=== PATIENT | male | born 1985 | race African-American/Black ===

== ENCOUNTER 2016-08-11 20:29 | Emergency (ER) | payer SELFPAY ==
[2016-08-11] MEDS ORDERED: ONDANSETRON 4 MG TAB.RAPDIS PO ONE (22:32)
[2016-08-11] MEDS ORDERED: ACETAMINOPHEN 325 MG TABLET PO ONE (22:32)
[2016-08-11 22:35] VITALS: BP 98/80
--- NOTE | 2016-08-11 22:35 | ER Document Report ---
ED Medical Screen (RME) - General Chief Complaint: Nausea/Vomiting/Diarrhea Stated Complaint: VOMITING DIARRHEA CHEST PAIN Notes: 30 year old male, chief complaint of nausea, vomiting, diarrhea, and mid abdominal pain starting today. Had chills. PMH HIV, taking his meds, CD4 counts reported to be normal. Denies abdominal surgery. TRAVEL OUTSIDE OF THE [place] IN LAST 30 DAYS: No - Related Data Allergies/Adverse Reactions: sulfamethoxazole [From Septra] Allergy (Verified 07/26/15 23:59) trimethoprim [From Septra] Allergy (Verified 07/26/15 23:59) Physical Exam - General General appearance: Appears well In distress: None - Abdominal Tenderness: Tender - generalized tenderness with no guarding
[2016-08-11 23:46] LABS: ABSOLUTE EOSINOPHILS # (AUTO) 0.2 10^3/uL (0.0-0.6); ABSOLUTE LYMPHOCYTES (AUTO) 1.3 10^3/uL (0.5-4.7); ABSOLUTE MONOCYTES (AUTO) 0.7 10^3/uL (0.1-1.4); BASOPHILS % (AUTO) 0.4 % (0-2); EOSINOPHILS % (AUTO) 3.3 % (0-6); HEMATOCRIT 49.1 % (37.9-51.0); HEMOGLOBIN 16.5 g/dL (13.5-17.0); HGB HCT DIFFERENCE 0.4; LYMPHOCYTES % (AUTO) 17.9 % (13-45); MEAN CORPUSCULAR HEMOGLOBIN 29.3 pg (27.0-33.4); MEAN CORPUSCULAR HGB CONC 33.6 g/dL (32.0-36.0); MEAN CORPUSCULAR VOLUME 87 fl (80-97); MONOCYTES % (AUTO) 9.3 % (3-13); RED BLOOD COUNT 5.63 10^6/uL (4.35-5.55); RED CELL DISTRIBUTION WIDTH 13.8 % (11.5-14.0); SEGMENTED NEUTROPHILS % (AUTO) 69.1 % (42-78); WHITE BLOOD COUNT 7.3 10^3/uL (4.0-10.5)
[2016-08-12 00:06] LABS: ALANINE AMINOTRANSFERASE 36 U/L (21-72); ALBUMIN 4.6 g/dL (3.5-5.0); ALKALINE PHOSPHATASE 62 U/L (38-126); ANION GAP 13 (5-19); ASPARTATE AMINO TRANSFERASE 48 U/L (17-59); BILIRUBIN,DIRECT 0.1 mg/dL (0.0-0.4); BILIRUBIN,TOTAL 0.7 mg/dL (0.2-1.3); BLOOD UREA NITROGEN 19 mg/dL (7-20); CALCIUM 9.1 mg/dL (8.4-10.2); CARBON DIOXIDE 27 mmol/L (22-30); CHLORIDE 102 mmol/L (98-107); CREATININE RESULT 1.23 mg/dL (0.52-1.25); GLUCOSE 92 mg/dL (75-110); POTASSIUM 4.2 mmol/L (3.6-5.0); SODIUM 142.1 mmol/L (137-145)
== END 2016-08-12 03:55 | disposition left against medical advice (07) ==
LOC: ER 20:29
DX: Z53.9 Procedure and treatment not carried out, unspecified reason (principal); R11.2 Nausea with vomiting, unspecified; R19.7 Diarrhea, unspecified; R07.9 Chest pain, unspecified
CPT/HCPCS: 99281; 36415; 85025; 80053; S0119

== ENCOUNTER 2018-10-03 19:51 | Emergency (ER) | payer SELFPAY ==
[2018-10-03 19:56] VITALS: BP 142/74
--- NOTE | 2018-10-03 20:47 | ER Document Report ---
ED Respiratory Problem - General Chief Complaint: Cough Stated Complaint: COUGH Time Seen by Provider: 10/03/18 20:30 Information source: Patient, Relative Notes: Patient is a 32-year-old male comes emergency room complaining of upper respiratory cold. States it started on Thursday and is been get into coughing fits that now his chest hurts from coughing so hard. He has been chilling but he does not know if he has had a temp in the past. He vapes cigarettes that he has a history of HIV positive and he is on antivirals. Patient does work in the public setting and sunglasses it. TRAVEL OUTSIDE OF THE [place] IN LAST 30 DAYS: No - HPI Patient complains to provider of: Cough Onset: Other - 2 days Duration: Continuous, Worse/persistent Initiating Event: Allergy Quality of pain: Achy, Throbbing Severity: Moderate Pain Level: 3 Context: Smoker, Other - HIV Short of Breath: Mild Chest pain/discomfort: Constant, Worse with deep breaths Cough: Productive Sputum amount: Moderate Sputum color: Green Associated symptoms: Earache, Runny nose, Sinus pain/pressure, Sore Throat Similar symptoms previously: No Recently seen / treated by doctor: No - Related Data Allergies/Adverse Reactions: sulfamethoxazole [From ] Allergy (Verified 07/26/15 23:59) trimethoprim [From ] Allergy (Verified 07/26/15 23:59) Past Medical History - Social History Smoking Status: Current Every Day Smoker Chew tobacco use (# tins/day): No Frequency of alcohol use: Social Drug Abuse: None Family History: None Patient has suicidal ideation: No Patient has homicidal ideation: No Renal/ Medical History: Denies: Hx Peritoneal Dialysis Review of Systems - Review of Systems Constitutional: Chills, Fever EENT: Ear pain, Nose congestion, Sinus pressure, Sinus discharge, Throat pain, Difficulty swallowing Cardiovascular: No symptoms reported Respiratory: Cough, Hurts to breathe, Sputum Gastrointestinal: No symptoms reported Genitourinary: No symptoms reported Male Genitourinary: No symptoms reported Musculoskeletal: No symptoms reported Skin: No symptoms reported Hematologic/Lymphatic: No symptoms reported Neurological/Psychological: No symptoms reported -: Yes All other systems reviewed and negative Physical Exam - Vital signs Vitals: Temp Pulse Resp BP Pulse Ox 98.3 F 98 20 142/74 H 96 10/03/18 19:55 10/03/18 19:55 10/03/18 19:55 10/03/18 19:55 10/03/18 19:55 Interpretation: Hypertensive - Notes Notes: PHYSICAL EXAMINATION: GENERAL: Patient is a well-nourished well-developed 32-year-old male who is in no apparent distress on physical exam tonight however he does appear ill. HEAD: Atraumatic, normocephalic. EYES: Pupils equal round and reactive to light, extraocular movements intact, sclera anicteric, conjunctiva are normal. ENT: Examination head and upper airway showed nasal mucosa to be very erythematous and edematous with a large amount of clear rhinorrhea draining continuously. Bilateral examination ears show TMs bulging with fluid levels noted throughout. Moderate amount of erythema surrounding the TMs also noted. External canals have mild erythema no swelling. Posterior pharynx shows large amount of drainage yellowish-green in color. Very thick in nature. Uvula is midline with erythema. Tonsils are slightly enlarged but no exudate known moderate amount of erythema though. NECK: Normal range of motion, supple without lymphadenopathy LUNGS: Breath sounds clear to auscultation bilaterally and equal. No wheezes rales or rhonchi. HEART: Regular rate and rhythm without murmurs NEUROLOGICAL: Normal speech, normal gait. Normal sensory, motor exams PSYCH: Normal mood, normal affect. SKIN: Warm, Dry, normal turgor, no rashes or lesions noted. Course - Re-evaluation Re-evalutation: 10/03/18 20:47 Patient's stay in ER was uneventful. He does have a history of HIV and is on antivirals. He appears somewhat ill and uncomfortable. We will place him on an antibiotic secondary to his immune status and will place him on some Sudafed, nasal steroid and will have him use some Afrin nasal spray before bed. Patient is in agreement with this treatment plan. - Vital Signs Vital signs: Temp Pulse Resp BP Pulse Ox 98.3 F 98 20 142/74 H 96 10/03/18 19:55 10/03/18 19:55 10/03/18 19:55 10/03/18 19:55 10/03/18 19:55 Discharge - Discharge Clinical Impression: Upper respiratory infection Qualifiers: URI type: unspecified URI Qualified Code(s): J06.9 - Acute upper respiratory infection, unspecified Sinusitis Qualifiers: Sinusitis location: frontal Chronicity: acute Recurrence: non-recurrent Qualified Code(s): J01.10 - Acute frontal sinusitis, unspecified Condition: Stable Disposition: HOME, SELF-CARE Instructions: Acetaminophen, Upper Respiratory Illness ([facility]), Sinusitis ([facility]) Additional Instructions: Home and rest. Medication as prescribed. Contact your doctor tomorrow to inform him of your condition. As we discussed I am placing you on an antibiotic because of your status. Also the Afrin nasal spray as we discussed only at night before bed for 3 nights. This is the afternoon that comes in a purple package with a moisturizer in it. This is 2 sprays on each side of the nose before bed only. Should you have increasing shortness of breath continue with severe cough or have any concerns return to ER for recheck. Prescriptions: Benzonatate [Tessalon Perles 100 mg Capsule] 100 mg PO Q8HP PRN #30 capsule PRN Reason: Amox Tr/Potassium Clavulanate [Augmentin 875-125 mg Tablet] 1 tab PO BID 10 Days #20 tablet Fluticasone Propionate [Flonase Nasal Monroe 50 Mcg/[place] 16 gm] 1 spray NASL Q12 #1 inhaler Pseudoephedrine HCl [Sudafed 12 Hour] 120 mg PO BID #20 tablet.er Forms: Return to Work Referrals: [facility] [NO LOCAL MD] - Follow up as needed
== END 2018-10-03 21:01 | disposition home or self-care (01) ==
LOC: ER 19:51
DX: J06.9 Acute upper respiratory infection, unspecified (principal); J01.10 Acute frontal sinusitis, unspecified; R05 Cough; H92.09 Otalgia, unspecified ear; R09.89 Other specified symptoms and signs involving the circulatory and respiratory systems; J34.89 Other specified disorders of nose and nasal sinuses; R09.81 Nasal congestion; R50.9 Fever, unspecified; R13.10 Dysphagia, unspecified; R07.1 Chest pain on breathing; J02.9 Acute pharyngitis, unspecified; F17.290 Nicotine dependence, other tobacco product, uncomplicated; Z21 Asymptomatic human immunodeficiency virus [HIV] infection status; Z79.899 Other long term (current) drug therapy; Z88.1 Allergy status to other antibiotic agents
CPT/HCPCS: 99283

== ENCOUNTER 2019-05-05 23:08 | Emergency (ER) | payer BC ==
--- NOTE | 2019-05-06 01:11 | RADIOLOGY REPORT (SQ) ---
EXAM DESCRIPTION: X-RAY CHEST- TWO VIEWS CLINICAL HISTORY: Chest pain COMPARISON: None available TECHNIQUE: 2.0 views of the chest FINDINGS: There are no discrete air space infiltrates, pneumothoraces or pleural effusions. The pulmonary vascularity is normal. The cardiomediastinal silhouette is normal in size. No suspicious lytic or blastic osseous lesions are identified. IMPRESSION: There are no acute lung parenchymal findings.
--- NOTE | 2019-05-06 01:18 | ER Document Report ---
ED General - General Chief Complaint: Shortness Of Breath Stated Complaint: CHEST PAIN WITH COUGH Time Seen by Provider: 05/06/19 00:58 Notes: 33-year-old male presents emergency department complaining of 2 weeks of a cough productive of clear and yellow mucus associated with chills and sweating. Patient states he only has pain when he coughs. Has some shortness of breath with coughing. Denies any wheezing. He is concerned he may have pneumonia because his friend's mother just from pneumonia. Admits history of HIV, currently he is compliant with his medications, viral load is undetectable and his CD4 count is normal. He is treated at [facility]. TRAVEL OUTSIDE OF THE [place] IN LAST 30 DAYS: No - Related Data Allergies/Adverse Reactions: sulfamethoxazole [From Janra] Allergy (Verified 07/26/15 23:59) trimethoprim [From Janra] Allergy (Verified 07/26/15 23:59) Home Medications: genvoya Past Medical History - General Information source: Patient - Social History Smoking Status: Current Every Day Smoker Frequency of alcohol use: Occasional Drug Abuse: None Family History: None Patient has suicidal ideation: No Patient has homicidal ideation: No Renal/ Medical History: Denies: Hx Peritoneal Dialysis Review of Systems - Review of Systems Constitutional: See HPI, Chills, Diaphoresis. denies: Fever EENT: Nose congestion, Nose discharge Cardiovascular: See HPI, Chest pain Respiratory: See HPI -: Yes All other systems reviewed and negative Physical Exam - Vital signs Vitals: Temp Pulse Resp BP Pulse Ox 97.9 F 94 16 140/87 H 98 05/05/19 23:39 05/05/19 23:39 05/05/19 23:39 05/05/19 23:39 05/05/19 23:39 Interpretation: Hypertensive - Notes Notes: GENERAL: Alert, interacts well. No acute distress. HEAD: Normocephalic, atraumatic EYES: Pupils equal, round and reactive to light, extraocular movements intact. ENT: Oral mucosa moist, tongue midline. Clear rhinorrhea, no turbinate edema, tympanic membranes intact, no bulging or injection, slight postnasal drip. NECK: Full range of motion, supple, trachea midline. LUNGS: Clear to auscultation bilaterally, no wheezes, rales or rhonchi, no respiratory distress. HEART: Regular rate and rhythm, no murmurs, gallops, rubs. ABDOMEN: Soft, nontender, nondistended, bowel sounds present in all 4 quadrants. EXTREMITIES: Moves all 4 extremities spontaneously. No cyanosis. NEUROLOGICAL: Alert and oriented x3, normal speech. PSYCH: Normal mood, normal affect. SKIN: Warm, Dry, normal turgor, no rashes or lesions noted. Course - Re-evaluation Re-evalutation: 05/06/19 01:48 Chest x-ray negative, consistent with viral upper respiratory tract infection with cough, no indication for steroids or inhaler as there is no wheezing. Discharged home with supportive care. - Vital Signs Vital signs: Temp Pulse Resp BP Pulse Ox 97.9 F 94 16 140/87 H 98 05/05/19 23:39 05/05/19 23:39 05/05/19 23:39 05/05/19 23:39 05/05/19 23:39 - EKG Interpretation by Me Additional EKG results interpreted by me: 05/06/19 01:00 EKG shows sinus rhythm at a rate of 81, normal axis, normal intervals, T wave inversions in lead III, LVH, with early repolarization with slight ST segment elevation, per my interpretation. Discharge - Discharge Clinical Impression: Viral upper respiratory tract infection with cough Condition: Stable Disposition: HOME, SELF-CARE Additional Instructions: Please use nasal saline rinses such as a NetiPot or NeilMed Sinus Rinses. Please use nasal steroid such as Nasonex 1 squirt per nostril twice a day to decrease inflammation and swelling. Please also use [id number] decongestants according to their directions on the box such as Sudafed during the day and Benadryl at night. Please use ibuprofen (Motrin or Advil) 600-800 mg every 8 hours as needed for pain or fever. You may also use acetaminophen (Tylenol) 1000 mg every 4-6 hours as needed for pain or fever. Please be aware that many medications contain acetaminophen, do not exceed a total of 1000 mg of acetaminophen every 6 hours. You may use the Tessalon Perles 1 tablet every 8 hours as needed to decrease cough. Prescriptions: Benzonatate [Tessalon Perles 100 mg Capsule] 100 mg PO Q8HP PRN #40 capsule PRN Reason:
[2019-05-06] MEDS ORDERED: BENZONATATE 100 MG CAPSULE PO ONE (01:49)
[2019-05-06 02:09] VITALS: BP 119/86
--- NOTE | 2019-05-06 06:49 | EKG REPORT ---
SEVERITY:- NORMAL ECG - SINUS RHYTHM ST ELEV, PROBABLE NORMAL EARLY REPOL PATTERN : Confirmed by: Dorian Harvey MD 06-May-2019 06:48:15
== END 2019-05-06 02:10 | disposition home or self-care (01) ==
LOC: ER 23:08
DX: J06.9 Acute upper respiratory infection, unspecified (principal); B97.89 Other viral agents as the cause of diseases classified elsewhere; R68.83 Chills (without fever); R61 Generalized hyperhidrosis; R05 Cough; R06.02 Shortness of breath; R07.9 Chest pain, unspecified; R09.81 Nasal congestion; J34.89 Other specified disorders of nose and nasal sinuses; R09.82 Postnasal drip; I51.7 Cardiomegaly; F17.200 Nicotine dependence, unspecified, uncomplicated; Z21 Asymptomatic human immunodeficiency virus [HIV] infection status; Z79.899 Other long term (current) drug therapy; Z88.1 Allergy status to other antibiotic agents
CPT/HCPCS: 71046; 93005; 93010; 99283

== ENCOUNTER 2019-07-10 18:53 | Emergency (ER) | payer BC ==
--- NOTE | 2019-07-10 19:08 | ER Document Report ---
ED Medical Screen (RME) - General Chief Complaint: Cough Stated Complaint: COUGH,CONGESTION,SORE THROAT Time Seen by Provider: 07/10/19 19:05 Mode of Arrival: Ambulatory Information source: Patient Notes: 33-year-old male presented to ED for complaint of cough cold congestion hot and cold flashes does not know if he has any fever. He states he has had chest pain with cough. He is HIV positive and is worried about getting pneumonia with his HIV. He is alert oriented respirations regular nonlabored speaking in full sentences. States he smokes 1 cigarette every other day denies alcohol or drugs. States he had his CD4 counts on the and they were good. I have greeted and performed a rapid initial assessment of this patient. A comprehensive ED assessment and evaluation of the patient, analysis of test results and completion of medical decision making process will be conducted by an additional ED providers. TRAVEL OUTSIDE OF THE [place] IN LAST 30 DAYS: No - Related Data Allergies/Adverse Reactions: sulfamethoxazole [From ] Allergy (Verified 07/26/15 23:59) trimethoprim [From Janra] Allergy (Verified 07/26/15 23:59) Past Medical History Renal/ Medical History: Denies: Hx Peritoneal Dialysis Physical Exam - Vital signs Vitals: Temp Pulse Resp BP Pulse Ox 97.9 F 94 18 147/76 H 100 07/10/19 19:03 07/10/19 19:03 07/10/19 19:03 07/10/19 19:03 07/10/19 19:03 Course - Vital Signs Vital signs: Temp Pulse Resp BP Pulse Ox 97.9 F 94 18 147/76 H 100 07/10/19 19:03 07/10/19 19:03 07/10/19 19:03 07/10/19 19:03 07/10/19 19:03
[2019-07-10 19:45] LABS: ABSOLUTE BASOPHILS # (AUTO) 0.1 10^3/uL (0.0-0.2); ABSOLUTE EOSINOPHILS # (AUTO) 0.3 10^3/uL (0.0-0.6); ABSOLUTE MONOCYTES (AUTO) 0.7 10^3/uL (0.1-1.4); APPEARANCE,URINE CLEAR; BASOPHILS % (AUTO) 0.6 % (0-2); BILIRUBIN,URINE NEGATIVE (NEGATIVE); COLOR,URINE YELLOW; EOSINOPHILS % (AUTO) 3.7 % (0-6); GLUCOSE, URINE NEGATIVE (NEGATIVE); HEMATOCRIT 45.5 % (37.9-51.0); HEMOGLOBIN 15.5 g/dL (13.5-17.0); KETONES,URINE NEGATIVE (NEGATIVE); LYMPHOCYTES % (AUTO) 24.7 % (13-45); MEAN CORPUSCULAR HEMOGLOBIN 29.6 pg (27.0-33.4); MEAN CORPUSCULAR VOLUME 87 fl (80-97); MONOCYTES % (AUTO) 8.2 % (3-13); PLATELET COUNT 231 10^3/uL (150-450); PROTEIN,URINE NEGATIVE (NEGATIVE); RED BLOOD COUNT 5.24 10^6/uL (4.35-5.55); RED CELL DISTRIBUTION WIDTH 13.6 % (11.5-14.0); SEGMENTED NEUTROPHILS % (AUTO) 62.8 % (42-78); TOTAL CELLS COUNTED % (AUTO) 100 %; URINE SPECIFIC GRAVITY 1.015; UROBILINOGEN,URINE NEGATIVE mg/dL (<2.0)
--- NOTE | 2019-07-10 19:45 | RADIOLOGY REPORT (SQ) ---
EXAM DESCRIPTION: CHEST 2 VIEWS COMPLETED DATE/TIME: 07/10/2019 7:36 pm REASON FOR STUDY: Cough cold congestion, HIV positive COMPARISON: 2018. TECHNIQUE: Frontal and lateral radiographic views of the chest acquired. NUMBER OF VIEWS: Two view. LIMITATIONS: None. FINDINGS: LUNGS AND PLEURA: No opacities, masses or pneumothorax. No pleural effusion. MEDIASTINUM AND HILAR STRUCTURES: No masses or contour abnormalities. HEART AND VASCULAR STRUCTURES: Heart normal size. No evidence for failure. BONES: No acute findings. HARDWARE: None in the chest. OTHER: No other significant finding. IMPRESSION: NO SIGNIFICANT RADIOGRAPHIC FINDING IN THE CHEST. TECHNICAL DOCUMENTATION: JOB ID: [id number] 2010 [employer]- All Rights Reserved Reading location - IP/workstation name: [email or web address]
[2019-07-10 20:01] LABS: ALBUMIN 4.9 g/dL (3.5-5.0); ALKALINE PHOSPHATASE 77 U/L (38-126); ANION GAP 11 (5-19); ASPARTATE AMINO TRANSFERASE 39 U/L (17-59); BILIRUBIN,TOTAL 0.4 mg/dL (0.2-1.3); BLOOD UREA NITROGEN 10 mg/dL (7-20); CALCIUM 9.6 mg/dL (8.4-10.2); CARBON DIOXIDE 26 mmol/L (22-30); CHLORIDE 103 mmol/L (98-107); GLUCOSE 88 mg/dL (75-110); POTASSIUM 4.3 mmol/L (3.6-5.0); TOTAL PROTEIN 8.3 g/dL (6.3-8.2)
[2019-07-10 20:02] LABS: A TYPE INFLUENZA AG NEGATIVE (NEGATIVE); B INFLUENZA AG NEGATIVE (NEGATIVE)
--- NOTE | 2019-07-10 20:30 | ER Document Report ---
ED General - General Chief Complaint: Cold Symptoms Stated Complaint: COUGH,CONGESTION,SORE THROAT Time Seen by Provider: 07/10/19 19:05 Mode of Arrival: Ambulatory Notes: Patient is a 33-year-old -[place] male with past medical history of HIV who presents to the emergency department the chief complaint of cough, scratchy throat and runny nose with postnasal drainage for the past few days. He reports given his HIV status he was concerned with the cough, wanted x-ray to make sure he had no pneumonia. He denies any known fevers chills or night sweats. Denies any nausea vomiting or diarrhea. States his cell counts are good and viral load is undetectable, takes his antiviral medications as prescribed and sees his doctor regularly. Admits to sick contacts, denies recent travel TRAVEL OUTSIDE OF THE [place] IN LAST 30 DAYS: No - Related Data Allergies/Adverse Reactions: sulfamethoxazole [From ] Allergy (Verified 07/26/15 23:59) trimethoprim [From ] Allergy (Verified 07/26/15 23:59) Home Medications: genyoa, Past Medical History - General Information source: Patient - Social History Smoking Status: Current Some Day Smoker Chew tobacco use (# tins/day): No Frequency of alcohol use: None Drug Abuse: None Family History: None Patient has suicidal ideation: No Patient has homicidal ideation: No Renal/ Medical History: Denies: Hx Peritoneal Dialysis Review of Systems - Review of Systems EENT: Nose congestion, Nose discharge, Throat pain Respiratory: Cough -: Yes All other systems reviewed and negative Physical Exam - Vital signs Vitals: Temp Pulse Resp BP Pulse Ox 97.9 F 94 18 147/76 H 100 07/10/19 19:03 07/10/19 19:03 07/10/19 19:03 07/10/19 19:03 07/10/19 19:03 - General General appearance: Appears well, Alert In distress: None - HEENT Head: Normocephalic, Atraumatic Eyes: Normal Conjunctiva: Normal Extraocular movements intact: Yes Eyelashes: Normal Pupils: PERRL Ears: Normal External canal: Normal Tympanic membrane: Normal Sinus: Normal Nasal: Normal Mouth/Lips: Normal Mucous membranes: Normal Pharynx: Normal Neck: Normal - Respiratory Respiratory status: No respiratory distress Chest status: Nontender Breath sounds: Normal Chest palpation: Normal - Cardiovascular Rhythm: Regular Heart sounds: Normal auscultation - Neurological Neuro grossly intact: Yes Cognition: Normal Orientation: AAOx4 [place] Coma Scale Eye Opening: Spontaneous [place] Coma Scale Verbal: Oriented [place] Coma Scale Motor: Obeys Commands [place] Coma Scale Total: 15 Speech: Normal - Psychological Associated symptoms: Normal affect, Normal mood - Skin Skin Temperature: Warm Skin Moisture: Dry Skin Color: Normal Course - Re-evaluation Re-evalutation: 07/10/19 20:28 Work-up unremarkable. X-ray negative for acute process per radiologist. History and physical consistent with a viral URI. Will prescribe Tessalon for cough. Discussed supportive care measures including rest and hydration. Counseled him regarding the importance of outpatient follow-up and advised to return here or any ER immediately with any new, persistent or worsening symptoms. He verbalized understood and agreed. - Vital Signs Vital signs: Temp Pulse Resp BP Pulse Ox 97.9 F 94 18 147/76 H 100 07/10/19 19:03 07/10/19 19:03 07/10/19 19:03 07/10/19 19:03 07/10/19 19:03 - Laboratory Result Diagrams: 07/10/19 19:15 07/10/19 19:15 Laboratory results interpreted by me: 07/10/19 19:15 ALT 54 H Total Protein 8.3 H Discharge - Discharge Clinical Impression: URI with cough and congestion Condition: Stable Disposition: HOME, SELF-CARE Instructions: Viral Syndrome ([facility]) Additional Instructions: Follow-up with your regular doctor in 2 to 3 days for reevaluation. Return here or any ER immediately with any new, persistent or worsening symptoms. Prescriptions: Benzonatate [Tessalon Perles 100 mg Capsule] 200 mg PO Q8HP PRN #40 capsule PRN Reason:
[2019-07-10 20:45] VITALS: BP 125/75
== END 2019-07-10 20:52 | disposition home or self-care (01) ==
LOC: ER 18:53
DX: J06.9 Acute upper respiratory infection, unspecified (principal); R05 Cough; R09.81 Nasal congestion; R07.9 Chest pain, unspecified; B20 Human immunodeficiency virus [HIV] disease; F17.200 Nicotine dependence, unspecified, uncomplicated
CPT/HCPCS: 36415; 71046; 80053; 81001; 85025; 87040; 87804; 99283